=== PATIENT | female | born 1980 | race Caucasian/White ===

== ENCOUNTER 2019-08-19 19:19 | Emergency (ER) | payer BC ==
--- NOTE | 2019-08-19 20:29 | EDM.PDOC ---
ED HPI GENERAL MEDICAL PROBLEM - General Chief Complaint: Chest Pain Stated Complaint: CHEST PAIN Time Seen by Provider: 08/19/19 20:13 Source of Information: Reports: Patient History Limitations: Reports: No Limitations - History of Present Illness INITIAL COMMENTS - FREE TEXT/NARRATIVE: 38-year-old female presents the emergency room chief complaint of coughing and chest pain. Patient states she has been coughing productive cough she wheezes and she smokes. Patient states she has had bronchitis without treatment over the past week. Patient admits to pleuritic pain and cough at this time. Eyes fever chills Onset: Today Duration: Day(s):, Getting Worse Location: Reports: Chest Severity: Mild Improves with: Reports: None Worsens with: Reports: Movement Associated Symptoms: Reports: No Other Symptoms, Cough, cough w sputum chest Pain Score (Numeric/FACES): 7 - Related Data Allergies Allergy/AdvReac Type Severity Reaction Status Date / Time No Known Allergies Allergy Verified 08/19/19 19:30 Home Meds: Home Meds . [No Known Home Meds] 08/19/19 [History] Past Medical History - Past Health History Medical/Surgical History: Denies Medical/Surgical History Endocrine/Metabolic History: Reports: Obesity/BMI 30+ Social & Family History - Family History Family Medical History: Noncontributory - Tobacco Use Smoking Status *Q: Current Every Day Smoker Years of Tobacco use: 15 Packs/Tins Daily: 1 - Recreational Drug Use Recreational Drug Use: No ED ROS GENERAL - Review of Systems Review Of Systems: See Below Constitutional: Reports: No Symptoms HEENT: Reports: No Symptoms Respiratory: Reports: Shortness of Breath, Wheezing, Cough, Sputum Cardiovascular: Reports: Chest Pain Endocrine: Reports: No Symptoms GI/Abdominal: Reports: No Symptoms : Reports: No Symptoms Musculoskeletal: Reports: No Symptoms Skin: Reports: No Symptoms Neurological: Reports: No Symptoms Psychiatric: Reports: No Symptoms Hematologic/Lymphatic: Reports: No Symptoms Immunologic: Reports: No Symptoms ED EXAM, GENERAL - Physical Exam Exam: See Below Free Text/Narrative:: 38-year-old female presents emergency room with shortness of breath, coughing and pleuritic chest pain. This is been going on past 2 weeks patient has not had any treatment. Patient does smoke. General Appearance: Alert, WD/WN, No Apparent Distress Eye Exam: Bilateral Eye: PERRL Ears: Normal External Exam, Normal Canal, Hearing Grossly Normal, Normal TMs Nose: Normal Inspection, Normal Mucosa Throat/Mouth: Normal Inspection, Normal Lips, Normal Teeth, Normal Gums, Normal Oropharynx, Normal Voice Head: Atraumatic, Normocephalic Neck: Normal Inspection, Supple, Non-Tender Respiratory/Chest: No Respiratory Distress, Lungs Clear, Normal Breath Sounds, No Accessory Muscle Use, Chest Non-Tender, Wheezing Cardiovascular: Normal Peripheral Pulses GI/Abdominal: Normal Bowel Sounds (Female) Exam: Deferred Rectal (Female) Exam: Deferred Back Exam: Normal Inspection, Full Range of Motion Neurological: Alert, Oriented, CN II-XII Intact, Normal Cognition, Normal Reflexes, No Motor/Sensory Deficits Psychiatric: Normal Affect, Normal Mood Skin Exam: Warm, Dry, Intact, Normal Color, No Rash Course - Vital Signs Text/Narrative:: This is been a 38-year-old female who presented with coughing and chest pain. Patient has had a productive cough for the last for 5 days. Patient has a normal EKG and a normal chest x-ray. Patient is not hypoxic but on exam she does have scattered wheezing. Patient has a history of asthma and smoking. Patient will be discharged with a diagnosis of bronchitis. Patient will be placed on appropriate medications and follow-up with a primary care physician. Last Recorded V/S: Last Vital Signs Temp 97 F 08/19/19 19:19 Pulse 93 08/19/19 19:19 Resp 18 08/19/19 19:19 BP 156/74 H 08/19/19 19:19 Pulse Ox 97 08/19/19 19:19 - Orders/Labs/Meds Orders: Active Orders 24 hr Category Date Time Status EKG Documentation Completion [RC] STAT Care 08/19/19 19:46 Active Chest 2V [CR] Stat Exams 08/19/19 19:46 Taken Departure - Departure Time of Disposition: 21:07 Disposition: Home, Self-Care 01 Condition: Good Clinical Impression: Acute bronchitis Qualifiers: Bronchitis organism: unspecified organism Qualified Code(s): J20.9 - Acute bronchitis, unspecified - Discharge Information Instructions: Acute Bronchitis, Adult, [id number] Referrals: PCP,None [Primary Care Provider] - Forms: ED Department Discharge Sepsis Event Note - Evaluation Sepsis Screening Result: No Definite Risk - Focused Exam Vital Signs: Vital Signs Temp Pulse Resp BP Pulse Ox 12/24/19 19:19 97 F 93 18 156/74 H 97 Date Exam was Performed: 08/19/19 Time Exam was Performed: 21:05
--- NOTE | 2019-08-19 21:09 | CR ---
Indication: Chest pain. SOB Technique: Chest 2 views Comparison: 05/01/2018 Findings/Impression: Cardiovascular and mediastinum: Stable cardiomediastinal silhouette. Lungs and pleural spaces: No consolidation or pleural effusions. No pneumothorax seen. Bones and soft tissues: No significant change. Dictated by Sonny Gunter MD @ 08/19/2019 9:07:40 PM Dictated by: Sonny Gunter MD @ 08/19/2019 21:07:45 (Electronically Signed)
[2019-08-19 21:14] VITALS: BP 147/94; PULSE 96
== END 2019-08-19 21:53 | disposition home or self-care (01) ==
LOC: MW.ED 19:19
DX: J20.9 Acute bronchitis, unspecified (principal); F17.210 Nicotine dependence, cigarettes, uncomplicated; E66.9 Obesity, unspecified; J45.909 Unspecified asthma, uncomplicated; Z68.43 Body mass index [BMI] 50.0-59.9, adult
CPT/HCPCS: 71046; 71046-26; 87804; 93005; 99285-25

== ENCOUNTER 2021-03-04 07:37 | Day surgery (SDC) | payer OTHER ==
[2021-03-04] MEDS ORDERED: Lactated Ringers 1,000 ML IV SCH (08:00)
[2021-03-04] MEDS ORDERED: Lidocaine 2% 5 ML SDV ONE (08:10)
[2021-03-04] MEDS ORDERED: Ondansetron 4 MG/2 ML SDV ONE (08:10)
[2021-03-04] MEDS ORDERED: Ketorolac 30 MG/ML SDV ONE (08:10)
[2021-03-04] MEDS ORDERED: Metoclopramide 10 MG/2 ML SDV ONE (08:10)
[2021-03-04] MEDS ORDERED: Dexamethasone 4 MG/ML 5 ML MDV ONE (08:10)
[2021-03-04] MEDS ORDERED: Glycopyrrolate 0.2 MG/ML SDV ONE (08:10)
[2021-03-04] MEDS ORDERED: fentaNYL 100 MCG/2 ML SDV ONE (08:14)
[2021-03-04] MEDS ORDERED: Propofol 200 MG/20 ML SDV ONE ×3 (08:15→10:03)
[2021-03-04] MEDS ORDERED: Ketamine 500 mg/10 ML MDV ONE (08:15)
--- NOTE | 2021-03-04 08:19 | PCM.PREANE ---
Preanesthetic Assessment - Procedure Proposed Procedure: Cervical Polypectomy - Anesthesia/Transfusion/Family Hx Anesthesia History: No Prior Anesthesia Family History of Anesthesia Reaction: No Transfusion History: No Prior Transfusion(s) - Review of Systems Pulmonary: Wheezing (Asthma, smoker 1/2 PPD x 15 yrs) - Physical Assessment NPO Status Date: 03/03/21 NPO Status Time: 18:00 Vital Signs: BP 140/96 HR 82 RR 16 O2 SAT 93% Temp 36.4 Height: 5 ft 9.75 in Weight: 175.087 kg ASA Class: 3 Airway Class: Mallampati = 2 Thyro-Mental Finger Breadths: 3 Mouth Opening Finger Breadths: 3 ROM/Head Extension: Full - Allergies Allergies/Adverse Reactions: Allergies Allergy/AdvReac Type Severity Reaction Status Date / Time No Known Allergies Allergy Verified 03/01/21 07:40 - Acknowledgements Anesthesia Type Planned: General Anesthesia Pt an Appropriate Candidate for the Planned Anesthesia: Yes Alternatives and Risks of Anesthesia Discussed w Pt/Guardian: Yes Pt/Guardian Understands and Agrees with Anesthesia Plan: Yes PreAnesthesia Questionnaire - Past Health History Medical/Surgical History: Denies Medical/Surgical History HEENT History: Reports: Other (See Below) Other HEENT History: wears glasses Cardiovascular History: Reports: None Respiratory History: Reports: Asthma Gastrointestinal History: Reports: None Genitourinary History: Reports: None PIPE BENDER History: Reports: None Musculoskeletal History: Reports: None Neurological History: Reports: None Psychiatric History: Reports: None Endocrine/Metabolic History: Reports: Obesity/BMI 30+ Hematologic History: Reports: None Immunologic History: Reports: None Oncologic (Cancer) History: Reports: None Dermatologic History: Reports: None - Past Surgical History Head Surgeries/Procedures: Reports: None HEENT Surgical History: Reports: Oral Surgery Other HEENT Surgeries/Procedures: wisdom teeth extraction Cardiovascular Surgical History: Reports: None Respiratory Surgical History: Reports: None GI Surgical History: Reports: None Female Surgical History: Reports: None Endocrine Surgical History: Reports: None Neurological Surgical History: Reports: None Musculoskeletal Surgical History: Reports: None Oncologic Surgical History: Reports: None Dermatological Surgical History: Reports: None - SUBSTANCE USE Tobacco Use Status *Q: Current Every Day Tobacco User Tobacco Use Within Last Twelve Months: Cigarettes - HOME MEDS Home Medications: Home Meds Albuterol [Proventil HFA] 1 puff INH QID PRN #1 inhaler 08/19/19 [Rx] - CURRENT (IN HOUSE) MEDS Current Meds: Current Medications Lactated Ringer's (Ringers, Lactated) 1,000 mls @ 125 mls/hr IV ASDIRECTED LAUREN Discontinued Medications Dexamethasone (Dexamethasone 4 Mg/Ml 5 Ml Mdv) Confirm Administered Dose 20 mg .ROUTE .STK-MED ONE Stop: 03/04/21 08:11 Glycopyrrolate (Glycopyrrolate 0.2 Mg/Ml Sdv) Confirm Administered Dose 0.2 mg .ROUTE .STK-MED ONE Stop: 03/04/21 08:11 Acetaminophen (Ofirmev 1000 Mg/100 Ml) Confirm Administered Dose 100 mls @ as directed .ROUTE .STK-MED ONE Stop: 03/04/21 08:09 Ketorolac Tromethamine (Ketorolac 30 Mg/Ml Sdv) Confirm Administered Dose 30 mg .ROUTE .STK-MED ONE Stop: 03/04/21 08:11 Lidocaine (Lidocaine 2% 5 Ml Sdv) Confirm Administered Dose 5 ml .ROUTE .STK-MED ONE Stop: 03/04/21 08:11 Metoclopramide HCl (Metoclopramide 10 Mg/2 Ml Sdv) Confirm Administered Dose 10 mg .ROUTE .STK-MED ONE Stop: 03/04/21 08:11 Ondansetron HCl (Ondansetron 4 Mg/2 Ml Sdv) Confirm Administered Dose 4 mg .ROUTE .STK-MED ONE Stop: 03/04/21 08:11
[2021-03-04] MEDS ORDERED: Ondansetron 4 MG/2 ML SDV IVPUSH PRN (08:25)
[2021-03-04] MEDS ORDERED: Metoclopramide 10 MG/2 ML SDV IVPUSH PRN (08:25)
[2021-03-04] MEDS ORDERED: Naloxone 0.4 MG/ML Syringe IVPUSH PRN (08:25)
[2021-03-04] MEDS ORDERED: Morphine 2 MG/ML SYRINGE IVPUSH PRN (08:25)
[2021-03-04] MEDS ORDERED: fentaNYL 100 MCG/2 ML SDV IVPUSH PRN (08:25)
[2021-03-04] MEDS ORDERED: Albuterol 0.083% 2.5 MG/3 ML Neb Soln NEB PRN (08:25)
[2021-03-04] MEDS ORDERED: HYDROmorphone 2 MG/ML Syringe IVPUSH PRN (08:25)
--- NOTE | 2021-03-04 10:24 | PCM.POSTAN ---
POST ANESTHESIA ASSESSMENT - MENTAL STATUS Mental Status: Alert, Oriented - VITAL SIGNS Vital Signs: Last Vital Signs Temp 36.3 C 03/04/21 10:14 Pulse 74 03/04/21 10:19 Resp 16 03/04/21 10:19 BP 123/63 03/04/21 10:19 Pulse Ox 94 L 03/04/21 10:19 - RESPIRATORY Respiratory Status: Respiratory Rate WNL, Airway Patent, O2 Saturation Stable - CARDIOVASCULAR CV Status: Pulse Rate WNL, Blood Pressure Stable - GASTROINTESTINAL GI Status: No Symptoms - POST OP HYDRATION Hydration Status: Adequate & Stable
--- NOTE | 2021-03-04 10:24 | PCM48HPAN ---
Post Anesthesia Note - EVALUATION WITHIN 48HRS OF ANESTHETIC Vital Signs in Normal Range: Yes Patient Participated in Evaluation: Yes Respiratory Function Stable: Yes Airway Patent: Yes Cardiovascular Function Stable: Yes Hydration Status Stable: Yes Pain Control Satisfactory: Yes Nausea and Vomiting Control Satisfactory: Yes Mental Status Recovered: Yes Vital Signs: Last Vital Signs Temp 36.3 C 03/04/21 10:14 Pulse 74 03/04/21 10:19 Resp 16 03/04/21 10:19 BP 123/63 03/04/21 10:19 Pulse Ox 94 L 03/04/21 10:19
--- NOTE | 2021-03-04 10:32 | PCM.OPNOTE ---
- General Post-Op/Procedure Note Date of Surgery/Procedure: 03/04/21 Operative Procedure(s): Diagnostic hysteroscopy. Cervical Polypectomy Findings: EUA shows normal sized anteverted uterus 3cm califlower appearing polyp noted in cervix extending into internal os Pre Op Diagnosis: 40yo P0 with cervical polyp Post-Op Diagnosis: same Anesthesia Technique: General ET Tube Primary Surgeon: Edwige العلي Anesthesia Provider: Anastasia Valiente Pathology: Cervical polyp Fluid Replacement, Intraop: 650 EBL in mLs: 5 Complications: None Condition: Good Free Text/Narrative:: Intake & Output 03/03/21 03/04/21 03/04/21 22:59 06:59 14:59 Output Total 50 Balance -50
[2021-03-04 11:57] VITALS: BP 115/60; PULSE 68
--- NOTE | 2021-03-06 06:40 | OR ---
SURGEON: PIPPA GUALLPA DATE OF PROCEDURE: 03/04/2021 PREOPERATIVE DIAGNOSES: 40-year-old, P0 with cervical polyps. POSTOPERATIVE DIAGNOSES: 40-year-old, P0 with cervical polyps. PROCEDURE: Diagnostic hysteroscopy with cervical polypectomy. ANAESTHESIA: General endotracheal EBL: 50 mL. IV FLUID: 650. NOTES AND FINDINGS: Normal-sized anteverted uterus. Cervix showed about 2 to 3 mm cauliflower polyp extruding from the internal os. DESCRIPTION OF PROCEDURE: The patient was taken to the operating room where general anesthesia was performed without difficulty. She was prepared and draped in the dorsal lithotomy position with Maninder stirrups. The cervix was exposed with the speculum. The polyp was noted and ring forceps was used to grasp the polyp, and in a twisting motion , the polyp was removed. Bleeding was noted. Silver nitrate stick was applied at the point of bleeding to stop the bleeding. The hysteroscope was then advanced. The cervix was dilated to accommodate the MyoSure hysteroscope and the hysteroscope was advanced. There was some poor visualization; however, the lower part of the uterus and cervix was noted to be normal. No polyp was extruded from this part of the uterus., after which the cervix was reinspected again, noted to be hemostatic. All instruments were removed. The patient tolerated the procedure well. All instruments and pad counts were correct x2. The patient will follow up in clinic in 2 weeks. TOM WALKER /[id number] MTDD
== END 2021-03-04 11:27 | disposition home or self-care (01) ==
LOC: MW.SDS 07:37
PROVIDERS: ATTEND Obstetrics & Gynecology
DX: N84.1 Polyp of cervix uteri (principal); F17.210 Nicotine dependence, cigarettes, uncomplicated; J45.998 Other asthma; E66.9 Obesity, unspecified; Z79.899 Other long term (current) drug therapy; Z68.43 Body mass index [BMI] 50.0-59.9, adult
CPT/HCPCS: 36415; 58558; 84703; 85027; J0131; J1100; J1885; J2704; J3490; J7120; 00952; 88305; J2405; J2765; J3010